=== PATIENT | female | born 2000 ===

== ENCOUNTER 2023-05-20 12:07 | Inpatient (IN) | payer SELFPAY ==
[2023-05-20] MEDS ORDERED: ePHEDrine 50 MG/ML SDV IVPUSH PRN ×2 (13:42)
[2023-05-20] MEDS ORDERED: Phenylephrine HCl 0.5 MG/5 ML AMP IVPUSH PRN (13:42)
[2023-05-20] MEDS ORDERED: Ropivacaine HCl/PF 400 MG in Premix Bag 1 BAG EPIDUR SCH (13:45)
[2023-05-20] MEDS ORDERED: Sodium Chloride 0.9% 20 ML SDV IV PRN (15:01)
[2023-05-20] MEDS ORDERED: Lidocaine 1% 50 ML MDV INJECT PRN (15:01)
[2023-05-20] MEDS ORDERED: Misoprostol 200 MCG Tab PO PRN (15:01)
[2023-05-20] MEDS ORDERED: Methylergonovine 0.2 MG/1 ML Amp IM PRN (15:01)
[2023-05-20] MEDS ORDERED: Nalbuphine 10 MG/0.5 ML Syringe IVPUSH PRN (15:01)
[2023-05-20] MEDS ORDERED: Sodium Chloride 0.9% 10 ML Syringe FLUSH PRN (15:01)
[2023-05-20] MEDS ORDERED: Sodium Chloride 0.9% 2.5 ML Syringe FLUSH PRN (15:01)
[2023-05-20] MEDS ORDERED: Ondansetron 4 MG/2 ML SDV IVPUSH PRN (15:01)
[2023-05-20] MEDS ORDERED: Tranexamic Acid IN NACL,ISO-OS 1,000 MG in Premix Bag 1 BAG IV PRN ×2 (15:01)
[2023-05-20] MEDS ORDERED: Terbutaline 1 MG/ML SDV SUBCUT PRN (15:01)
[2023-05-20] MEDS ORDERED: Water For Irrigation,Sterile 1,000 ML Container IRR PRN (15:01)
[2023-05-20] MEDS ORDERED: Carboprost Tromethamine 250 MCG/1 mL Vial IM PRN (15:01)
[2023-05-20 15:13] LABS: HEMOGLOBIN 13.7 g/dL (12.0-16.0); MEAN CORPUSCULAR HEMOGLOBIN 29.3 pg (28.0-32.0); MEAN CORPUSCULAR HGB CONC 34.3 g/dL (32.0-36.0); MEAN CORPUSCULAR VOLUME 85.5 fL (83.0-99.0); PLATELET COUNT,PLT 159 K/uL (150-400); RED BLOOD CELL COUNT 4.68 M/uL (4.10-5.30); WHITE BLOOD CELL COUNT,WBC 8.22 K/uL (3.9-11.3)
[2023-05-20] MEDS ORDERED: Oxytocin/0.9 % Sodium Chloride 30 UNIT/500 ML BAG IV SCH ×2 (15:15)
[2023-05-20] MEDS ORDERED: Lactated Ringers 1,000 ML IV SCH (15:15)
[2023-05-20] MEDS ORDERED: Docusate Sodium 100 MG Cap PO PRN (20:19)
[2023-05-20] MEDS ORDERED: Ketorolac 30 MG/ML SDV IVPUSH ONE (20:19)
[2023-05-20] MEDS ORDERED: Benzocaine/Menthol 20%-0.5% Spray 78 GM Cannister TOP PRN (20:19)
[2023-05-20] MEDS ORDERED: Lanolin 100% Cream 7 GM Tube TOP PRN (20:19)
[2023-05-20] MEDS ORDERED: oxyCODONE 5 MG Tab PO PRN (20:19)
[2023-05-20] MEDS ORDERED: Witch Hazel Medicated Pads 40/Jar TOP PRN (20:19)
[2023-05-20 22:00] LABS: PH,UMBILICAL ARTERIAL 7.416 (7.18-7.38); PH,UMBILICAL VENOUS 7.391 (7.25-7.45)
[2023-05-21] MEDS: Acetaminophen 500 MG Tab PO PRN ×2 (03:06→09:02)
[2023-05-21] MEDS: Ibuprofen 800 MG Tab PO PRN ×2 (03:55→15:30)
[2023-05-21 06:15] LABS: HEMATOCRIT 33.8 % (37.0-47.0); HEMOGLOBIN 11.7 g/dL (12.0-16.0)
== END 2023-05-21 21:14 | disposition home or self-care (01) | DRG 807 ==
LOC: MW.OB 12:07 → OBSVTOIN 12:07 → MW.OB 23:00
PROVIDERS: ADMIT Obstetrics & Gynecology; ATTEND Obstetrics & Gynecology
PROC: 10E0XZZ Delivery of Products of Conception, External Approach (ICD-10-PCS; principal; 2023-05-20)
DX: O80 Encounter for full-term uncomplicated delivery (principal); Z37.0 Single live birth; Z3A.39 39 weeks gestation of pregnancy
CPT/HCPCS: 36415; 59025; 59409; 82803; 85014; 85018; 85027; 86592; 86850; 86900; 86901; A9270-GY; J1885; J2001; J2590; J7120